=== PATIENT | male | born 1980 | race Caucasian/White ===

== ENCOUNTER → 2016-10-02 | Outpatient (REF) | LOC: WSOH 12:49 → WSPT 13:30 | DX: Z02.1 Encounter for pre-employment examination (principal) ==

== ENCOUNTER → 2016-11-16 | Outpatient (REF) | LOC: WSOH 08:40 | DX: Z23 Encounter for immunization (principal) ==

== ENCOUNTER → 2016-12-22 | Outpatient (REF) | LOC: WSOH 14:49 | DX: Z23 Encounter for immunization (principal) ==

== ENCOUNTER → 2017-05-12 | Outpatient (REF) | LOC: WSOH 08:51 | DX: Z02.89 Encounter for other administrative examinations (principal) ==

== ENCOUNTER 2018-01-24 10:42 | Emergency (ER) | payer SELFPAY ==
[~2018-01-24] VITALS: Ht 180.3 cm; Wt 118.4 kg
[2018-01-24 10:49] VITALS: BP 134/75; PULSE 85; TEMP 98.5
[2018-01-24] MEDS ORDERED: FLEXERIL 1010 MG/TAB PO (11:55)
[2018-01-24] MEDS ORDERED: NORCO 325 MG-51 TAB PO (11:55)
== END 2018-01-24 12:10 | disposition home or self-care (01) ==
LOC: COL.ER 10:42
DX: M54.5 Low back pain (principal); F17.210 Nicotine dependence, cigarettes, uncomplicated; Z98.890 Other specified postprocedural states; X50.0XXA Overexertion from strenuous movement or load, initial encounter; Y92.89 Other specified places as the place of occurrence of the external cause; Y99.0 Civilian activity done for income or pay
CPT/HCPCS: J1885; J2360